=== PATIENT | female | born 1965 | race Hispanic/Latino ===

== ENCOUNTER → 2020-10-17 | Outpatient (CLI) | payer OTHER | END | disposition home or self-care (01) | LOC: OIH 12:46 | PROVIDERS: ATTEND Internal Medicine | DX: M17.0 Bilateral primary osteoarthritis of knee (principal); M19.042 Primary osteoarthritis, left hand; M19.041 Primary osteoarthritis, right hand; M19.072 Primary osteoarthritis, left ankle and foot; M48.061 Spinal stenosis, lumbar region without neurogenic claudication; D48.0 Neoplasm of uncertain behavior of bone and articular cartilage; M85.88 Other specified disorders of bone density and structure, other site | CPT/HCPCS: 72100; 73630 ==